=== PATIENT | female | born 1940 | race Caucasian/White ===

== ENCOUNTER 2017-05-01 13:22 | Outpatient (CLI) | payer MEDICARE ==
--- NOTE | 2017-05-01 14:48 | CT ---
CT LUMBAR SPINE WITHOUT CONTRAST: HISTORY: Left hip pain, extending down the left leg. History of lumbar fusion at L4-L5 in 2008. COMPARISON: None. TECHNIQUE: CT lumbar spine is performed without intravenous Gadolinium administration. Multisequential, multipl earle imaging is performed. FINDINGS: There are bilateral transpedicular screws at L4 and L5. There is bone graft material involving the p osterior elements. There is a partial right facetectomy at L4. Disk prosthesis at L4-L5 level is no sage. There is 5 mm of anterolisthesis of L4 upon L5. There is 4 mm of anterolisthesis of L5 upon S1 . Vacuum-disk phenomenon at L5-S1 and L2-L3. Visualized lung trent are clear. Scarring in the right lung base is noted. Visualized retroperitoneal structures are unremarkable. Symmetric attenuation of the psoas muscles. Diverticulosis, without evidence of diverticulitis. No evidence of obstructive uropathy. 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 Lumbar spine vertebral body height is maintained. No fracture. Limited evaluation of the contents of the central spinal canal and neural foramina due to technique. T12-L1: No high-grade central canal stenosis or high-grade neural foraminal narrowing. L1-L2: No high-grade central canal stenosis or high-grade foraminal narrowing. L2-L3: Generalized disk bulge results in mild central canal stenosis. Moderate right and moderate t o severe left foraminal narrowing. L3-L4: Generalized disk bulge, ligamentum flavum thickening, and facet hypertrophy result in mild ce ntral canal stenosis. Mild bilateral foraminal narrowing. L4-L5: Disk prosthesis. Postsurgical changes are present. Limited evaluation due to beam attenuati on artifact. No high-grade central canal stenosis. Right neural foramen is patent. Mild left nasrin inal narrowing. L5-S1: Vacuum disk phenomenon. No high-grade central canal stenosis. Moderate right and mild left foraminal narrowing. IMPRESSION: Postoperative and degenerative change of the lumbar spine as above. POS: [facility]
== END 2017-05-01 13:23 | disposition home or self-care (01) ==
LOC: TBSIIMAG 13:22
PROVIDERS: ATTEND Orthopaedic Surgery
DX: M54.30 Sciatica, unspecified side (principal); M47.896 Other spondylosis, lumbar region; Z98.1 Arthrodesis status
CPT/HCPCS: 72131

== ENCOUNTER 2017-06-17 10:20 | Outpatient (CLI) | payer MEDICARE | END 2017-06-17 10:21 | disposition home or self-care (01) | LOC: BICMAMMO 10:20 | PROVIDERS: ATTEND Internal Medicine Rheumatology | DX: M81.0 Age-related osteoporosis without current pathological fracture (principal); M85.80 Other specified disorders of bone density and structure, unspecified site | CPT/HCPCS: 77080 ==

== ENCOUNTER 2017-07-14 10:04 | Outpatient (CLI) | payer MEDICARE ==
--- NOTE | 2017-07-14 12:21 | RAD ---
THREE VIEWS LUMBAR SPINE INCLUDING FLEXION AND EXTENSION VIEWS: Date: 07-14-17 History: Spondylolisthesis. Comparison: CT lumbar spine 05-01-17. FINDINGS: There are post-surgical changes related to posterior fusion at the L4-5 level with bipedicular screws and posterior rods again transfixing this level. No obvious hardware complication is appreciated. In tradiscal prosthesis is present at this level. There is slight retrolisthesis of L2 on L3 which is a stable finding from the prior exam. There is al so slight grade I anterolisthesis of L5 on S1 which is also stable from prior CT exam. There is narro wing of the L2-3 and L5-S1 intervertebral disc spaces. No abnormal translational motion is seen betwe en the flexion and extension views of the lumbar spine. Degenerative change is seen in the lower thor acic spine. Vascular calcifications are noted in the abdominal aorta. IMPRESSION: 1. Post-surgical changes related to posterior fusion at the L4-5 level. No hardware complication is s een. 2. Degenerative changes at the L2-3 and L5-S1 levels with slight retrolisthesis of L2 on L3 and stabl e grade I anterolisthesis of L5 on S1. POS: [facility]
== END 2017-07-14 10:05 | disposition home or self-care (01) ==
LOC: RAD 10:04
PROVIDERS: ATTEND Specialist
DX: M43.17 Spondylolisthesis, lumbosacral region (principal); M47.896 Other spondylosis, lumbar region; M47.897 Other spondylosis, lumbosacral region; Z98.1 Arthrodesis status
CPT/HCPCS: 72100

== ENCOUNTER 2017-10-03 13:07 | Observation (INO) | payer MEDICARE ==
[2017-10-03] MEDS ORDERED: Nitroglycerin 0.4 MG TAB (25 Tab Bottle) ONE (13:28)
[2017-10-03 14:31] LABS: #Lymphocytes 1.5 thou/uL (1.20-3.40); #Monocytes 0.5 thou/uL (0.11-0.59); #Neutrophils 4.1 thou/uL (1.40-6.50); %Basophils 0.5 % (0.0-1.0); %Eosinophils 0.5 % (0.0-10.0); %Lymphocytes 24.3 % (21.0-51.0); %Monocytes 7.3 % (0.0-10.0); %Neutrophils 67.4 % (42.0-75.0); Hemoglobin 12.9 g/dL (12.0-16.0); Mean Corpuscular HGB CONC 34.9 g/dL (32.0-36.0); Mean Corpuscular Hemoglobin 33.8 pg (27.0-31.0); Mean Corpuscular Volume 96.7 fL (78.0-98.0); Mean Platelet Volume 6.9 fL (7.4-10.4); Platelet Count 243 thou/uL (130-400); RBC Distribution Width 13.1 % (11.5-14.5); Red Blood Cell (RBC) Count 3.81 mill/uL (4.20-5.40); White Blood Cell (WBC) Count 6.1 thou/uL (4.8-10.8)
[2017-10-03 14:53] LABS: ALT (SGPT) 18 U/L (8-55); AST (SGOT) 33 U/L (5-34); Albumin 4.2 g/dL (3.4-4.8); Alkaline Phosphatase 58 U/L (40-150); Anion Gap 18 mmol/L (10-20); BUN (Urea Nitrogen) 13 mg/dL (9.8-20.1); Bilirubin, Total 0.5 mg/dL (0.2-1.2); CK (CPK) 124 U/L (29-168); Calc. Creatinine Clearance 0 mL/min (70-130); Calcium 9.2 mg/dL (7.8-10.44); Carbon Dioxide 19 mmol/L (23-31); Chloride 101 mmol/L (98-107); Estimated GFR-MDRD 66; Globulin 3.2 g/dL (2.4-3.5); Glucose 74 mg/dL (83-110); Lipase 43 U/L (8-78); Potassium 3.9 mmol/L (3.5-5.1); Protein, Total 7.4 g/dL (6.0-8.3); Sodium 134 mmol/L (136-145)
[2017-10-03 14:58] LABS: CKMB 1.8 ng/mL (0-6.6); Troponin I 0.011 ng/mL (< 0.028)
[2017-10-03 17:51] LABS: Troponin I 0.013 ng/mL (< 0.028)
[2017-10-03] MEDS ORDERED: Sodium Chloride 0.9% 1,000 ML IV SCH (18:45)
[2017-10-03 19:02] VITALS: BMI 23.0
[2017-10-03 21:27] LABS: Troponin I Less than 0.010 ng/mL (< 0.028)
[2017-10-03] MEDS ORDERED: Ondansetron ODT 4 MG TAB PO PRN (22:13)
[2017-10-03] MEDS ORDERED: Acetaminophen 325 MG TAB PO PRN (22:13)
[2017-10-03] MEDS ORDERED: Ondansetron HCl/PF 4 MG/2 ML Vial IVP PRN (22:13)
[2017-10-03] MEDS ORDERED: Nitroglycerin 0.4 MG TAB (25 Tab Bottle) PO PRN (22:13)
[2017-10-03] MEDS ORDERED: Senokot 8.6 MG TAB PO PRN (22:13)
[2017-10-03] MEDS ORDERED: hydrALAZINE 20 MG/ML VIAL SLOW IVP PRN (22:16)
[2017-10-03] MEDS ORDERED: Famotidine 20 MG TAB PO SCH (22:30)
--- NOTE | 2017-10-03 22:46 | HP ---
DATE OF ADMISSION: 10/03/2017 PRIMARY CARE PHYSICIAN: Dr. Edge. PRIMARY BOX SPINNER: Dr. Garrido. CHIEF COMPLAINT: Chest discomfort. HISTORY OF PRESENT ILLNESS: The patient is a 77-year-old female with hypertension and rheumatoid art hritis, presented to the emergency room with chest discomfort that has been ongoing for last few week s. The patient was recently evaluated by Dr. Garrido as outpatient, who recommended a stress test and an echocardiogram, which was scheduled for next week. Patient had chest discomfort this morning, for which she presented to the emergency room. It was mod erate in intensity, substernal, associated with shortness of breath, nausea, and lightheadedness. Th e pain improved with nitroglycerin. She denies recent immobilization, travel, fever, chills, or coug h. Recently, the patient gets short of breath on [id number] exertion. She was recently starte d on Toprol-XL by Dr. Garrido. PAST MEDICAL HISTORY: 1. Hypertension. 2. Rheumatoid arthritis. 3. Osteoarthritis. 4. GERD. 5. Hypothyroidism. 6. Chronic pain syndrome. PAST SURGICAL HISTORY: 1. Multiple orthopedic surgeries including left knee replacement, right hip replacement, bunionectom y, rotator cuff surgery on the right. 2. Thyroidectomy. 3. Tonsillectomy. 4. Basal cell carcinoma removal. ALLERGIES: The patient is allergic to PENICILLIN, SULFA, BETADINE. CURRENT HOME MEDICATIONS: 1. Protonix. 2. Pepcid. 3. Metoprolol succinate 25 mg at bedtime. 4. Losartan 50 mg daily. 5. Levothyroxine 112 mcg daily. 6. Folic acid daily. 7. Methotrexate. SOCIAL HISTORY: Patient currently lives at home. No smoking, alcohol, or drug use. She is FULL COD E, makes her own decision with the help of her family. FAMILY HISTORY: Negative for premature coronary artery disease. REVIEW OF SYSTEMS: The following complete review of systems was negative, unless otherwise mentioned in the HPI or below: Constitutional: Weight loss or gain, ability to conduct usual activities. Sk in: Rash, itching. Eyes: Double vision, pain. ENT/Mouth: Nose bleeding, neck stiffness, pain, te nderness. Cardiovascular: Palpitations, dyspnea on exertion, orthopnea. Respiratory: Shortness of breath, wheezing, cough, hemoptysis, fever, or night sweats. Gastrointestinal: Poor appetite, abdo mellissa pain, heartburn, nausea, vomiting, constipation, or diarrhea. Genitourinary: Urgency, frequen cy, dysuria, nocturia. Musculoskeletal: Pain, swelling. Neurologic/Psychiatric: Anxiety, depressi on. Allergy/Immunologic: Skin rash, bleeding tendency. PHYSICAL EXAMINATION: VITAL SIGNS: Temperature 98.6, respirations of 19, pulse rate of 95, blood pressure 173/106, O2 satu ration 99% on room air. GENERAL: A 77-year-old female in no apparent distress. Chest discomfort has resolved. HEENT: Head: Atraumatic, normocephalic. Sclerae are anicteric. Moist mucous membrane, no oral les ion. NECK: Supple, no JVD appreciated. No carotid bruit. LUNGS: Clear to auscultation bilaterally. No wheezing, rales, or rhonchi. HEART: S1 and S2 present. Regular rate and rhythm, 2/6 systolic murmur over the mitral area. No he aves or pulsation. ABDOMEN: Soft, nontender, bowel sounds present, no rebound or guarding. EXTREMITIES: No edema or calf tenderness. NEUROLOGIC: Grossly nonfocal. Moves all 4 extremities. PSYCHIATRY: Alert, awake, oriented x3. SKIN: Warm and dry. LYMPH NODES: No palpable lymph nodes in the neck. PERIPHERAL VASCULAR: Radial pulses palpable bilaterally. MUSCULOSKELETAL: No joint swelling or tenderness. LABORATORY FINDINGS: CBC showed WBC 6.1 with hemoglobin 12.9. Chemistries showed sodium 134, potassium 3.9, chloride 101, bicarbonate 19, BUN 13, creatinine 0.83. LFTs in normal range. Troponin negative. EKG, by my review, showed sinus rhythm with left ventricu lar hypertrophy and nonspecific ST-T-wave changes. IMPRESSION AND PLAN: 1. Chest discomfort, rule out acute coronary syndrome. Patient's symptoms are somewhat suspicious f or angina. We will consult Cardiology. We will also get stress test in a.m. We will add aspirin. Continue beta blockers and losartan. 2. Rheumatoid arthritis. We will resume methotrexate. 3. Degenerative joint disease. 4. Gastroesophageal reflux disease. We will continue PPI and H2 blockers, which she takes at home. 5. Mild hyponatremia. Repeat labs after 1 week is recommended. Primary care physician advised to f jose elias. 6. Chronic kidney disease, stage 2. 7. Hypothyroidism. We will continue levothyroxine. 8. Chronic pain syndrome. Plan of care was discussed with the patient and the family in detail, and they stated understanding.
[2017-10-04] MEDS ORDERED: Levothyroxine Sodium 112 MCG TAB PO SCH (06:00)
[2017-10-04] MEDS ORDERED: Losartan 25 MG TAB PO SCH (09:00)
[2017-10-04] MEDS ORDERED: Hydroxychloroquine Sulfate 200 MG TAB PO SCH ×2 (09:00→21:00)
[2017-10-04] MEDS ORDERED: Aspirin 325 MG TAB PO SCH (09:00)
[2017-10-04] MEDS ORDERED: ADENOSINE 60 MG/20 ML VIAL ONE (11:06)
[2017-10-04 15:49] VITALS: BP 140/74; TEMP 98
--- NOTE | 2017-10-04 16:12 | DIS ---
DATE OF DISCHARGE: 10/04/2017 DISCHARGE DISPOSITION: Home. FOLLOWUP: 1. Follow up with primary care physician, Dr. Heather Edge in 1 week. 2. Follow up with Dr. Garrido in 2-3 weeks. ALLERGIES: The patient is allergic to PENICILLIN, IODINE and SULFA. DISCHARGE MEDICATIONS: Are same as admission medications. No changes were made. BRIEF HOSPITAL COURSE: The patient is a 77-year-old female with hypertension and rheumatoid arthriti s, presented to the emergency room with chest discomfort. Please refer to the history and physical d ated 10/03/2017 for further details. The patient was admitted to the hospital with a diagnosis of chest discomfort, rule out acute coronar y syndrome. Serial troponins remained negative. Patient was seen by Cardiology, Dr. Garrido. She underwent a stress test that was negative for reversible ischemia. Patient has been cleared by Card iology for discharge. Telemetry monitoring did not reveal significant arrhythmias. FINAL DIAGNOSES: 1. Chest discomfort, acute coronary syndrome ruled out. 2. Negative Cardiolite stress test. 3. Rheumatoid arthritis. 4. Degenerative joint disease. 5. Gastroesophageal reflux disease. 6. Mild hyponatremia. Repeat labs after 1 week recommended. Primary care physician advised to foll ow. 7. Chronic kidney disease stage 2. 8. Hypothyroidism. 9. Chronic pain syndrome. 10. Plan of care was discussed with the patient in detail. She stated understanding.
--- NOTE | 2017-10-04 16:40 | CON ---
DATE OF CONSULTATION: 10/04/2017 REASON FOR CONSULTATION: Shortness of breath and chest pain. HISTORY OF PRESENT ILLNESS: Ms. Henriquez is a very pleasant 77-year-old woman who was found and evalu ated in the office recently. Her main complaint was shortness of breath. Shortness of breath would be intermittent. She also had chest tightness and pressure. No other associated ameliorating or exa cerbating factors present. She was scheduled for a stress study next week. [facility]. PAST MEDICAL HISTORY: Hyperthyroidism. PAST SURGICAL HISTORY: Tonsillectomy, hysterectomy, bunion repair, right hip surgery, hand surgery, back surgery, rotator cuff repair, knee surgery. ALLERGIES: SULFA, PENICILLIN and IODINE. HOME MEDICATIONS: Include methotrexate, folic acid, hydroxychloroquine, Tylenol, clindamycin, Imodiu m, losartan, stool softener, Protonix, vitamin D3, Zetia, calcium, Toprol-XL. REVIEW OF SYSTEMS: Ten-point review of systems reviewed as above, otherwise negative. PHYSICAL EXAMINATION: GENERAL: Patient is a pleasant female who is in no acute distress. The patient appears her stated age. VITAL SIGNS: Blood pressure 147/63, pulse 92, temperature 98.6. NEUROLOGIC: The patient is alert and oriented times 3 with no focal neurologic deficits. HEENT: Sclerae without icterus. Mouth has moist mucous membranes with normal pallor. NECK: No JVD. Carotid upstroke brisk. No bruits bilaterally. LUNGS: Clear to auscultation with unlabored respirations. BACK: No scoliosis or kyphosis. CARDIAC: Regular rate and rhythm with normal S1 and S2. No S3 or S4 noted. No significant rubs, murmurs, thrills, or gallops noted throughout the precordium. PMI is not displaced. There is no parasternal heave. ABDOMEN: Soft, nontender, nondistended. No peritoneal signs present. No hepatosplenomegaly. No abnormal striae. EXTREMITIES: 2+ femoral and 2+ dorsalis pedis pulses. No cyanosis, clubbing, or edema. SKIN: No gross abnormalities. PERTINENT LABORATORY DATA: Hemoglobin 12.9, creatinine 0.83, BNP of 134, troponin negative. IMAGING DATA: Stress rest negative for ischemia with normal LVEF. IMPRESSION: 1. Chest pain. 2. Shortness of breath. RECOMMENDATIONS: Ms. Henriquez's symptoms are not felt to be typical for angina. Her heart score is e stimated at less than 3. She underwent a noninvasive stress study that is negative for ischemia. I would seek a noncardiac cause. I did state we could proceed with angiography for symptoms dictated. At this point, she would like to proceed with medical therapy. Her family was present during the di scussion. PLAN: Follow up Ms. Henriquez in next 1-2 weeks.
--- NOTE | 2017-10-04 16:48 | NM ---
MYOCARDIAL PERFUSION STUDY: Date: 10-04-17 History: Chest pain. Radiopharmaceutical: 28 mCi Technetium 99M Sestamibi, IV at stress. 9.4 mCi Technetium 99M Sestamibi, IV at rest. Medications: 11.2 ml (33.6 mg) Adenosine, IV. FINDINGS: There is normal uptake of radiotracer seen within the left ventricular myocardium on the stress and r esting acquisitions. There is no significant reversible defect identified. No significant area of rev ersibility is identified on quantitative analysis. The gated images show mild hypokinesis at the sept um. There is normal ventricular wall thickening. Calculated left ventricular ejection fraction is 51% which is at the lower limits of normal. IMPRESSION: 1. Normal myocardial perfusion study without evidence of a reversible defect seen to suggest ischemia . 2. Mild hypokinesis of the septum. 3. Normal LVEF of 51%. POS: [facility]
[2017-10-04] MEDS ORDERED: Ezetimibe 10 MG TAB PO SCH (21:00)
[2017-10-04] MEDS ORDERED: Latanoprost 0.005% Ophth Soln 2.5 ml Bottle EA EYE SCH (21:00)
[2017-10-04] MEDS ORDERED: Famotidine 20 MG TAB PO SCH (21:00)
== END 2017-10-04 16:20 | disposition home or self-care (01) ==
LOC: ERS 13:07 → 2SW 18:45
PROVIDERS: ADMIT Internal Medicine; ATTEND Internal Medicine
DX: R07.89 Other chest pain (principal); M06.9 Rheumatoid arthritis, unspecified; K21.9 Gastro-esophageal reflux disease without esophagitis; E87.1 Hypo-osmolality and hyponatremia; I12.9 Hypertensive chronic kidney disease with stage 1 through stage 4 chronic kidney disease, or unspecified chronic kidney disease; N18.2 Chronic kidney disease, stage 2 (mild); E03.9 Hypothyroidism, unspecified; G89.4 Chronic pain syndrome; M19.90 Unspecified osteoarthritis, unspecified site; Z88.0 Allergy status to penicillin; Z88.2 Allergy status to sulfonamides; Z88.8 Allergy status to other drugs, medicaments and biological substances
CPT/HCPCS: 71045; 78452; 80053; 82550; 82553; 83690; 83880; 84484 ×2; 85025; 93005; 93017; 94760; 96360; 99285; A9500; G0378; 36415; J0153

== ENCOUNTER 2017-10-30 09:21 | Outpatient (CLI) | payer MEDICARE | END 2017-10-30 09:22 | disposition home or self-care (01) | LOC: BICMRI 09:21 | PROVIDERS: ATTEND Specialist | DX: M54.14 Radiculopathy, thoracic region (principal) | CPT/HCPCS: 72146 ==

== ENCOUNTER → 2018-09-03 | Day surgery (SDC) | payer MEDICARE ==
[~2018-09-03] MED LIST: Lidocaine 2% Jelly 5 ML TUBE ONE
== END ==
LOC: ENDO/OP 07:49
PROVIDERS: ATTEND Internal Medicine Gastroenterology
DX: R13.10 Dysphagia, unspecified (principal); M06.9 Rheumatoid arthritis, unspecified; Z79.899 Other long term (current) drug therapy; Z88.0 Allergy status to penicillin; Z88.2 Allergy status to sulfonamides; Z88.8 Allergy status to other drugs, medicaments and biological substances; Z91.040 Latex allergy status
CPT/HCPCS: 91010

== ENCOUNTER 2018-11-09 10:09 | Outpatient (CLI) | payer MEDICARE ==
--- NOTE | 2018-11-09 13:13 | RAD ---
ESOPHAGRAM: HISTORY: Pill dysphagia. FINDINGS: Swallowing is grossly normal. There is unobstructed flow of contrast through the esophagus into the stomach. No ulcer, stricture, mass, or diverticulum is seen. A 12 mm tablet passed promptly from th e esophagus into the stomach. After the passage of the tablet, the patient complained of a feeling of sticking of the tablet in the upper mid chest likely due to esophageal spasm. IMPRESSION: No evidence of obstructive mass or stricture. POS: [facility]
== END 2018-11-09 10:10 | disposition home or self-care (01) ==
LOC: RAD 10:09
PROVIDERS: ATTEND Internal Medicine Gastroenterology
DX: R13.10 Dysphagia, unspecified (principal)
CPT/HCPCS: 74220

== ENCOUNTER 2019-03-15 13:43 | Outpatient (CLI) | payer MEDICARE ==
--- NOTE | 2019-03-15 15:12 | MRI ---
Lumbar spine MRI with and without contrast: 03/15/2019 COMPARISON: 02/08/2016 HISTORY: Postlaminectomy syndrome, low back pain radiating down the left leg TECHNIQUE: Multiplanar multisequence MR imaging of the lumbar spine obtained with and without contras t FINDINGS: The sagittal STIR imaging demonstrates no focal area of osseous marrow edema. On the basis of 5 lumbar type vertebral bodies, the conus medullaris terminates at the L1-2 level. There is retrolisthesis at L2-3 measuring 5 mm and there is anterolisthesis at L4-5 measuring 6 mm an d at L5-S1 measuring 9-10 mm. Posterior fusion hardware noted at L4-5 with bilateral pedicle screws and vertically oriented interlocking rods. T12-L1: Mild bilateral facet hypertrophy with no significant central canal or neural foraminal stenos is. L1-2: Mild bilateral facet hypertrophy. Mild disc space narrowing and disc desiccation with mild disc bulge. No significant central canal or neural foraminal stenosis. L2-3: There is no central canal stenosis. There is mild bilateral facet hypertrophy. There is a nasrin inal and post foraminal disc protrusion on the left. This left-sided disc protrusion in combination with left-sided facet hypertrophy causes severe left-sided neural foraminal stenosis. There is mild/m oderate right neural foraminal stenosis. This neural foraminal stenosis has worsened bilaterally with compared to the prior examination. L4-5: There is disc space narrowing and disc desiccation with mild disc bulge. Bilateral facet hypert rophy is noted. No significant central canal stenosis. Mild left neural foraminal stenosis. No significant right neural foraminal stenosis. L4-5: Disc space narrowing and disc desiccation with vacuum disc formation. No central canal stenosis . Facet hypertrophy noted bilaterally with mild bilateral neural foraminal stenosis. L5-S1: There is disc space narrowing and disc desiccation. There is is no significant central canal s tenosis. There is mild bilateral neural foraminal stenosis, right greater than left. The imaged retroperitoneal structures demonstrate no acute findings. The postcontrast imaging demonstrates no abnormal enhancement involving the contents of the thecal sa c, the imaged osseous structures, or the intervertebral discs IMPRESSION: Postoperative and degenerative changes within the lumbar spine as detailed above. The mos t significant finding is severe left-sided neural foraminal stenosis at L2-3 on the basis of disc protrusion and facet hypertrophy.
== END 2019-03-15 13:44 | disposition home or self-care (01) ==
LOC: BICMRI 13:43
PROVIDERS: ATTEND Specialist
DX: M51.16 Intervertebral disc disorders with radiculopathy, lumbar region (principal); M96.1 Postlaminectomy syndrome, not elsewhere classified; M47.26 Other spondylosis with radiculopathy, lumbar region; M48.061 Spinal stenosis, lumbar region without neurogenic claudication; Z98.890 Other specified postprocedural states
CPT/HCPCS: 72158; 82565

== ENCOUNTER 2019-05-10 09:45 | Outpatient (CLI) | payer MEDICARE, OTHER ==
--- NOTE | 2019-05-10 10:37 | BD ---
BONE DENSITOMETRY USING DEXA: Date: 05/10/2019 HISTORY: Postmenopausal screening for osteoporosis. FINDINGS: Left Forearm: BMD (g/cm2) UD 0.366 T-Score: -1.3 Z-Score: 0.9 Mid 0.484 T-Score: -2.2 Z-Score: 0.8 1/3 0.592 T-Score: -1.7 Z-Score: 1.4 Total 0.475 T-Score: -1.9 Z-Score: 1.1 Left Hip: Neck 0.620 T-Score: -2.1 Z-Score: 0.2 Total 0.754 T-Score: -1.5 Z-Score: 0.5 IMPRESSION: Osteopenia. POS: [facility]
== END 2019-05-10 09:46 | disposition home or self-care (01) ==
LOC: BICMAMMO 09:45
PROVIDERS: ATTEND Neurological Surgery
DX: M81.0 Age-related osteoporosis without current pathological fracture (principal); M85.89 Other specified disorders of bone density and structure, multiple sites
CPT/HCPCS: 77080

== ENCOUNTER 2020-02-29 08:16 | Outpatient (CLI) | payer MEDICARE ==
[2020-03-01 02:42] LABS: SARS-CoV-2 MS2 Positive; SARS-CoV-2 N Gene Negative; SARS-CoV-2 S Gene Negative; SARS-CoV-2 by NAA Not Detected (NotDetected); SARS-CoV-2 orf1ab Negative
== END 2020-02-29 08:17 | disposition home or self-care (01) ==
LOC: LABBT 08:16
PROVIDERS: ATTEND Specialist
DX: Z01.812 Encounter for preprocedural laboratory examination (principal); Z20.828 Contact with and (suspected) exposure to other viral communicable diseases
CPT/HCPCS: 87635; U0003

== ENCOUNTER 2020-03-06 10:49 | Day surgery (SDC) | payer MEDICARE ==
[2020-03-05 10:01] VITALS: BMI 20.5
[~2020-03-06 10:49] MED LIST changes: +Dexamethasone 20 MG/5 ML VIAL ONE; +Lidocaine 1% PF 5 ML VIAL ONE; -Lidocaine 2% Jelly 5 ML TUBE ONE; +Ondansetron PF 4 MG/2 ML Vial ONE; +PROPOFOL 200 MG/20 ML VIAL ONE
[2020-03-06] MEDS ORDERED: Fentanyl 100 MCG/2 ML VIAL ONE (11:23)
[2020-03-06] MEDS ORDERED: Propofol 500 MG/50 ML VIAL ONE (11:28)
[2020-03-06] MEDS ORDERED: Bupivacaine PF 0.5% 30 ML VIAL ONE (11:59)
[2020-03-06] MEDS ORDERED: EPINEPHrine 1 MG/ML AMP ONE (11:59)
[2020-03-06] MEDS ORDERED: Vancomycin 1 GM/200 ML BAG ONE (12:09)
--- NOTE | 2020-03-06 13:55 | RAD ---
XR Thoracic Spine 1 View History: Dorsal column stimulator insertion Comparison: None. Findings: Single image was obtained with dorsal column electrodes present at the mid thoracic spine. Impression: Fluoroscopy for procedure purposes.
--- NOTE | 2020-03-06 16:57 | OP ---
DATE OF PROCEDURE: 03/06/2020 PREOPERATIVE DIAGNOSES: 1. Postlaminectomy syndrome. 2. Chronic pain syndrome. 3. Lumbar radiculopathy. POSTOPERATIVE DIAGNOSES: 1. Postlaminectomy syndrome. 2. Chronic pain syndrome. 3. Lumbar radiculopathy. PROCEDURES PERFORMED: 1. Spinal cord stimulator generator implant. 2. Spinal cord stimulator lead implant x2. DESCRIPTION OF PROCEDURE: The patient was taken to the operating room and placed prone on the operating room table. A time-out was performed. The back was prepped with ChloraPrep. Sterile drapes were applied. Using fluoroscopy, we located the interspace of T12-L1. We anesthetized the skin and made an incision and blunt dissected this down to fascia. We used the 14-gauge supplied Touhy needle in a paramedian fashion to engage in the ligament. We used loss of resistance to achieve access to the epidural space. This was negative for aspiration of heme or CSF. An 8 contact Medtronic lead was then threaded through the needle and up the midline dorsal epidural space to the bottom of T7. We then placed a contralateral lead using the exact same technique to place the lead just right of midline at the bottom of T8. Stimulation was performed with the patient awake and the patient noted paresthesia in all pain areas. We then took the needles out taking care not to remove the leads or move the leads. We threaded anchors over these leads and brought that down to the fascia layer. We fixated the anchors to the fascia using 2-0 silk suture x2 for each anchor. We tugged the leads under continuous fluoro and they did not move in the epidural space. A tension relief loop was then created in that incision. We then anesthetized the left upper buttock and made a horizontal incision. Blunt dissected this down to Sandepe fascia and blunt dissected superior and inferiorly to make a pocket. We used a tunneling device to connect two incisions. The leads were threaded through this tunneling device and brought to the battery pocket area. These were connected to the battery and fixated to the battery using a torque wrench. Impedances were checked which were all good. We put the battery in the pocket, which went in easily. We approximated the fascial areas using 2-0 Vicryl sutures in a horizontal mattress and simple interrupted stitch in multiple layers. We then used a 3-0 repeat for subcuticular stitch and used Dermabond over this. Once dry, we placed a sterile 4x4s and Medipore tape over this and the patient was taken to Day Stay under stable condition. Job ID: [id number]
== END 2020-03-06 15:15 | disposition home or self-care (01) ==
LOC: CCL 10:49
PROVIDERS: ATTEND Specialist
PROC: 0JH70BZ Insertion of Single Array Stimulator Generator into Back Subcutaneous Tissue and Fascia, Open Approach (ICD-10-PCS; principal; 2020-03-06)
PROC: 00HU0MZ Insertion of Neurostimulator Lead into Spinal Canal, Open Approach (ICD-10-PCS; 2020-03-06)
DX: M96.1 Postlaminectomy syndrome, not elsewhere classified (principal); G89.4 Chronic pain syndrome; M43.17 Spondylolisthesis, lumbosacral region; M51.16 Intervertebral disc disorders with radiculopathy, lumbar region; M51.17 Intervertebral disc disorders with radiculopathy, lumbosacral region; M47.22 Other spondylosis with radiculopathy, cervical region; M46.1 Sacroiliitis, not elsewhere classified; Z79.899 Other long term (current) drug therapy; Z88.0 Allergy status to penicillin; Z88.8 Allergy status to other drugs, medicaments and biological substances; Z88.2 Allergy status to sulfonamides
CPT/HCPCS: 72020; 76000; C1778; C1787; J0171; J0690; J1100; J2405; J2704; J3010; J3370; L8679; L8689; S0020

== ENCOUNTER 2021-11-19 13:15 | Outpatient (CLI) | payer MEDICARE | END 2021-11-19 13:16 | disposition home or self-care (01) | LOC: BICMAMMO 13:15 | PROVIDERS: ATTEND Internal Medicine Rheumatology | DX: M81.8 Other osteoporosis without current pathological fracture (principal); M85.89 Other specified disorders of bone density and structure, multiple sites | CPT/HCPCS: 77080 ==

== ENCOUNTER 2021-12-02 11:17 | Outpatient (CLI) | payer MEDICARE | END 2021-12-02 11:18 | disposition home or self-care (01) | LOC: BICRAD 11:17 | PROVIDERS: ATTEND Nurse Practitioner Family | DX: M47.814 Spondylosis without myelopathy or radiculopathy, thoracic region (principal); Z98.890 Other specified postprocedural states | CPT/HCPCS: 72072 ==

== ENCOUNTER 2022-02-04 12:36 | Outpatient (CLI) | payer MEDICARE | END 2022-02-04 12:37 | disposition home or self-care (01) | LOC: RAD 12:36 | PROVIDERS: ATTEND Physician Assistant | DX: R06.02 Shortness of breath (principal); R91.8 Other nonspecific abnormal finding of lung field | CPT/HCPCS: 71046 ==

== ENCOUNTER 2022-04-02 11:05 | Outpatient (CLI) | payer MEDICARE | END 2022-04-02 11:06 | disposition home or self-care (01) | LOC: BICCT 11:05 | PROVIDERS: ATTEND Physician Assistant | DX: R91.8 Other nonspecific abnormal finding of lung field (principal); I70.90 Unspecified atherosclerosis; J98.4 Other disorders of lung | CPT/HCPCS: 71250 ==

== ENCOUNTER 2023-02-10 10:22 | Outpatient (CLI) | payer MEDICARE | END 2023-02-10 10:23 | disposition home or self-care (01) | LOC: MRI 10:22 | PROVIDERS: ATTEND Specialist | DX: M51.16 Intervertebral disc disorders with radiculopathy, lumbar region (principal); M47.26 Other spondylosis with radiculopathy, lumbar region; Z98.1 Arthrodesis status | CPT/HCPCS: 72148 ==

== ENCOUNTER 2023-08-26 12:58 | Outpatient (CLI) | payer MEDICARE | END 2023-08-26 12:59 | disposition home or self-care (01) | LOC: MRI 12:58 | PROVIDERS: ATTEND Nurse Practitioner Family | DX: M47.22 Other spondylosis with radiculopathy, cervical region (principal); M43.12 Spondylolisthesis, cervical region; M48.02 Spinal stenosis, cervical region; M25.78 Osteophyte, vertebrae; M50.121 Cervical disc disorder at C4-C5 level with radiculopathy; M48.03 Spinal stenosis, cervicothoracic region | CPT/HCPCS: 72141 ==

== ENCOUNTER 2023-10-28 12:56 | Inpatient (IN) | payer MEDICARE ==
[2023-10-28 13:49] LABS: #Basophils 0.04 10x3/uL (0.0-0.2); #Eosinphils Less than 0.03 10x3/uL (0.0-0.7); %Basophils 0.5 % (0.0-1.0); %Eosinophils 0.3 % (0.0-10.0); %Lymphocytes 19.4 % (21.0-51.0); %Monocytes 7.1 % (0.0-10.0); %Neutrophils 72.4 % (42.0-75.0); Hematocrit 41.5 % (36.0-47.0); Hemoglobin 14.5 g/dL (12.0-16.0); Mean Corpuscular HGB CONC 34.9 g/dL (32.0-36.0); Mean Corpuscular Hemoglobin 32.1 pg (27.0-31.0); Mean Corpuscular Volume 91.8 fL (78.0-98.0); Platelet Count 296 10x3/uL (130-400); RBC Distribution Width 13.8 % (11.5-14.5); Red Blood Cell (RBC) Count 4.52 mill/uL (4.20-5.40)
[2023-10-28 14:18] LABS: ALT (SGPT) 15 U/L (8-55); AST (SGOT) 45 U/L (5-34); Albumin 4.1 g/dL (3.4-4.8); Alkaline Phosphatase 62 U/L (40-110); Anion Gap 16 mmol/L (10-20); BUN (Urea Nitrogen) 18 mg/dL (9.8-20.1); Bilirubin, Total 0.6 mg/dL (0.2-1.2); Calc. Creatinine Clearance 0 mL/min (70-130); Calcium 10.3 mg/dL (7.8-10.44); Carbon Dioxide 25 mmol/L (23-31); Chloride 99 mmol/L (98-107); Estimated GFR 68; Globulin 4.1 g/dL (2.4-3.5); Glucose 96 mg/dL (83-110); Lipase 40 U/L (8-78); Potassium 4.7 mmol/L (3.5-5.1); Protein, Total 8.2 g/dL (5.8-8.1); Sodium 135 mmol/L (136-145)
[2023-10-28 14:19] LABS: Troponin I 0.017 ng/mL (< 0.028)
[2023-10-28] MEDS ORDERED: Acetaminophen 325 MG TAB PO PRN (16:20)
[2023-10-28] MEDS ORDERED: Acetaminophen/Codeine 30-300mg Tablet PO PRN (16:20)
[2023-10-28] MEDS ORDERED: Senokot S 8.6-50 MG TAB PO PRN (16:20)
[2023-10-28] MEDS ORDERED: Guaifenesin DM 100-10/5 ML UDCUP PO PRN (16:20)
[2023-10-28 17:25] LABS: Troponin I 0.015 ng/mL (< 0.028)
[2023-10-28] MEDS: Sodium Chloride 0.9% 1,000 ML IV SCH (17:58)
[2023-10-28 18:28] LABS: Bacteria/HPF None Seen HPF (None Seen); Bilirubin Negative (Negative); Blood, Urine Negative (Negative); Clarity Clear (Clear); Glucose, Urine (Dipstick) >=1000 mg/dL (Negative); Ketone, Urine Negative (Negative); Leukocyte Negative Leu/uL (Negative); Nitrite Negative (Negative); Protein, Urine (Dipstick) Negative (Neg-Trace); RBC/HPF None Seen HPF (0-3); Specific Gravity, Urine 1.008 (1.002-1.036); Squamous Epithelial 0-3 HPF (0-3); Urobilinogen Normal mg/dL (Less than 2); WBC/HPF None Seen HPF (0-3); pH, Urine 7.5 (5.0-9.0)
[2023-10-28 20:42] LABS: Troponin I 0.034 ng/mL (< 0.028)
[2023-10-28] MEDS: Enoxaparin 40 MG (0.4 mL) SYRINGE SC SCH (21:13)
[2023-10-28] MEDS: Ezetimibe 10 MG TAB PO SCH (21:13)
[2023-10-28] MEDS: Famotidine 20 MG TAB PO SCH (21:13)
[2023-10-28] MEDS: Latanoprost 0.005% Ophth Soln 2.5 ml Bottle EA EYE SCH (21:14)
[2023-10-28 23:22] VITALS: BMI 20.3
[2023-10-29 04:39] LABS: #Basophils 0.04 10x3/uL (0.0-0.2); %Basophils 0.5 % (0.0-1.0); %Eosinophils 0.8 % (0.0-10.0); %Lymphocytes 20.5 % (21.0-51.0); %Monocytes 10.1 % (0.0-10.0); %Neutrophils 67.7 % (42.0-75.0); Hematocrit 36.5 % (36.0-47.0); Hemoglobin 12.5 g/dL (12.0-16.0); Mean Corpuscular HGB CONC 34.2 g/dL (32.0-36.0); Mean Corpuscular Volume 93.4 fL (78.0-98.0); Mean Platelet Volume 10.1 fL (7.4-10.4); Platelet Count 243 10x3/uL (130-400); RBC Distribution Width 14.1 % (11.5-14.5); Red Blood Cell (RBC) Count 3.91 mill/uL (4.20-5.40)
[2023-10-29 04:56] LABS: ALT (SGPT) 11 U/L (8-55); AST (SGOT) 28 U/L (5-34); Albumin 3.3 g/dL (3.4-4.8); Alkaline Phosphatase 52 U/L (40-110); Anion Gap 15 mmol/L (10-20); BUN (Urea Nitrogen) 15 mg/dL (9.8-20.1); Bilirubin, Total 0.8 mg/dL (0.2-1.2); Calc. Creatinine Clearance 44 mL/min (70-130); Calcium 8.9 mg/dL (7.8-10.44); Carbon Dioxide 22 mmol/L (23-31); Chloride 104 mmol/L (98-107); Estimated GFR 73; Globulin 3.1 g/dL (2.4-3.5); Glucose 90 mg/dL (83-110); Magnesium 1.6 mg/dL (1.6-2.6); Potassium 3.7 mmol/L (3.5-5.1); Protein, Total 6.4 g/dL (5.8-8.1); Sodium 137 mmol/L (136-145)
[2023-10-29] MEDS: Levothyroxine Sodium 75 MCG TAB PO SCH (06:07)
[2023-10-29 09:01] LABS: Troponin I 0.041 ng/mL (< 0.028)
[2023-10-29] MEDS: Montelukast Sodium 10 mg Tablet PO SCH (10:31)
[2023-10-29] MEDS: Pantoprazole DR 40 MG TAB PO SCH (10:32)
[2023-10-29] MEDS: Lorazepam 2 MG/ML VIAL SLOW IVP SCH (15:06)
[2023-10-30 05:09] LABS: #Basophils 0.05 10x3/uL (0.0-0.2); %Basophils 0.8 % (0.0-1.0); %Eosinophils 1.4 % (0.0-10.0); %Lymphocytes 28.1 % (21.0-51.0); %Neutrophils 59.4 % (42.0-75.0); Hemoglobin 12.2 g/dL (12.0-16.0); Mean Corpuscular HGB CONC 33.9 g/dL (32.0-36.0); Mean Corpuscular Hemoglobin 32.1 pg (27.0-31.0); Mean Corpuscular Volume 94.7 fL (78.0-98.0); Mean Platelet Volume 9.9 fL (7.4-10.4); Platelet Count 239 10x3/uL (130-400); RBC Distribution Width 14.3 % (11.5-14.5)
[2023-10-30 05:28] LABS: ALT (SGPT) 13 U/L (8-55); AST (SGOT) 32 U/L (5-34); Albumin 3.3 g/dL (3.4-4.8); Alkaline Phosphatase 50 U/L (40-110); Anion Gap 15 mmol/L (10-20); BUN (Urea Nitrogen) 19 mg/dL (9.8-20.1); Bilirubin, Total 0.4 mg/dL (0.2-1.2); Calc. Creatinine Clearance 40 mL/min (70-130); Calcium 8.8 mg/dL (7.8-10.44); Carbon Dioxide 21 mmol/L (23-31); Chloride 107 mmol/L (98-107); Estimated GFR 65; Globulin 3.1 g/dL (2.4-3.5); Glucose 83 mg/dL (83-110); Magnesium 1.9 mg/dL (1.6-2.6); Potassium 4.1 mmol/L (3.5-5.1); Protein, Total 6.4 g/dL (5.8-8.1); Sodium 139 mmol/L (136-145)
[2023-10-31 04:54] LABS: #Basophils 0.04 10x3/uL (0.0-0.2); %Basophils 0.5 % (0.0-1.0); %Lymphocytes 28.1 % (21.0-51.0); %Monocytes 9.9 % (0.0-10.0); Hematocrit 36.6 % (36.0-47.0); Hemoglobin 12.4 g/dL (12.0-16.0); Mean Corpuscular HGB CONC 33.9 g/dL (32.0-36.0); Mean Corpuscular Hemoglobin 31.4 pg (27.0-31.0); Mean Corpuscular Volume 92.7 fL (78.0-98.0); Mean Platelet Volume 9.8 fL (7.4-10.4); Platelet Count 226 10x3/uL (130-400); RBC Distribution Width 14.2 % (11.5-14.5); Red Blood Cell (RBC) Count 3.95 mill/uL (4.20-5.40)
[2023-10-31 05:38] LABS: Anion Gap 14 mmol/L (10-20); BUN (Urea Nitrogen) 16 mg/dL (9.8-20.1); Calc. Creatinine Clearance 40 mL/min (70-130); Calcium 8.5 mg/dL (7.8-10.44); Carbon Dioxide 23 mmol/L (23-31); Chloride 107 mmol/L (98-107); Estimated GFR 66; Glucose 87 mg/dL (83-110); Magnesium 1.9 mg/dL (1.6-2.6); Potassium 3.9 mmol/L (3.5-5.1); Sodium 140 mmol/L (136-145)
[2023-10-31 08:06] VITALS: TEMP 98.1
[2023-10-31] MEDS: Sacubitril 24MG/Valsartan 26 MG TAB PO SCH (15:00)
[2023-10-31 15:06] VITALS: BP 145/75
[2023-11-03 19:10] LABS: Metanephrine,Plasma <25.0 pg/mL (0.0-88.0); Normetanephrine,Pl 67.1 pg/mL (0.0-297.2)
[2023-11-06 13:16] LABS: Metanephrine,Ur 40 ug/L (Undefined); Metanephrines Total-24H 53 ug/24 hr (36-209); Normetanephrine,Ur 179 ug/L (Undefined); Normetanephrines-24H U 237 ug/24 hr (131-612)
== END 2023-10-31 15:50 | disposition home or self-care (01) | DRG 312 ==
LOC: ERS 12:56 → ERHOLD 15:54 → 2NO 19:32 → OBSVTOIN 10-30 17:17
PROVIDERS: ADMIT Internal Medicine; ATTEND Internal Medicine
PROC: 4A00X4Z Measurement of Central Nervous Electrical Activity, External Approach (ICD-10-PCS; principal; 2023-10-29)
DX: R55 Syncope and collapse (principal); I50.22 Chronic systolic (congestive) heart failure; I42.8 Other cardiomyopathies; E78.5 Hyperlipidemia, unspecified; G89.4 Chronic pain syndrome; E03.9 Hypothyroidism, unspecified; K21.9 Gastro-esophageal reflux disease without esophagitis; M06.9 Rheumatoid arthritis, unspecified; M19.90 Unspecified osteoarthritis, unspecified site; I49.3 Ventricular premature depolarization; I11.0 Hypertensive heart disease with heart failure; Z88.0 Allergy status to penicillin; Z88.2 Allergy status to sulfonamides; Z79.899 Other long term (current) drug therapy; Z96.641 Presence of right artificial hip joint; Z96.652 Presence of left artificial knee joint; Z90.89 Acquired absence of other organs; Z98.890 Other specified postprocedural states; Z98.49 Cataract extraction status, unspecified eye
CPT/HCPCS: 36415; 70450; 70551; 71045; 80048; 80053; 81001; 83690; 83735; 83835; 83880; 84443; 84484; 85025; 93005; 93306; 93880; 95700; 95711; 95819; 96360; 96372; 96374; G0378; J1650; J2060; J7030

== ENCOUNTER 2024-11-01 10:59 | Outpatient (CLI) | payer MEDICARE | END 2024-11-01 11:00 | disposition home or self-care (01) | LOC: LABBT 10:59 | PROVIDERS: ATTEND Orthopaedic Surgery | DX: Z01.810 Encounter for preprocedural cardiovascular examination (principal); M54.50 Low back pain, unspecified; M54.17 Radiculopathy, lumbosacral region | CPT/HCPCS: 93005; 93010 ==

== ENCOUNTER 2024-11-01 11:00 | Inpatient (IN) | payer MEDICARE ==
[2024-11-01 13:43] LABS: #Basophils 0.03 10x3/uL (0.0-0.2); #Eosinophils 0.03 10x3/uL (0.0-0.7); #Monocytes 0.52 10x3/uL (0.11-0.59); #Neutrophils 4.04 10x3/uL (1.40-6.50); %Basophils 0.5 % (0.0-1.0); %Eosinophils 0.5 % (0.0-10.0); %Lymphocytes 24.8 % (21.0-51.0); %Monocytes 8.4 % (0.0-10.0); %Neutrophils 65.6 % (42.0-75.0); Hematocrit 39.2 % (36.0-47.0); Hemoglobin 12.9 g/dL (12.0-16.0); Mean Corpuscular Hemoglobin 31.1 pg (27.0-31.0); Mean Corpuscular Volume 94.5 fL (78.0-98.0); Platelet Count 275 10x3/uL (130-400); Red Blood Cell (RBC) Count 4.15 mill/uL (4.20-5.40); White Blood Cell (WBC) Count 6.16 10x3/uL (4.8-10.8)
[2024-11-01 14:02] LABS: INR-International Normal Ratio 1.1; PTT 35.9 sec (22.9-36.1); Prothrombin Time 14.3 sec (12.0-14.7)
[2024-11-01 14:19] LABS: Anion Gap 15 mmol/L (10-20); BUN (Urea Nitrogen) 14 mg/dL (9.8-20.1); Calc. Creatinine Clearance 0 mL/min (70-130); Calcium 9.4 mg/dL (7.8-10.44); Carbon Dioxide 27 mmol/L (23-31); Chloride 99 mmol/L (98-107); Glucose 83 mg/dL (83-110); Potassium 3.9 mmol/L (3.5-5.1); Sodium 137 mmol/L (136-145)
[2024-11-08] MEDS ORDERED: Glycopyrrolate 0.2 MG/ML 5 ML SYRINGE ONE (06:52)
[2024-11-08] MEDS ORDERED: fentaNYL PF 100 MCG/2 ML SYRINGE ONE ×3 (06:52→10:08)
[2024-11-08] MEDS ORDERED: Ondansetron PF 4 MG/2 ML Vial ONE (06:52)
[2024-11-08] MEDS ORDERED: PHENYLEPHRINE-NS 100 MCG/ML 10 ML SYRINGE ONE (06:52)
[2024-11-08] MEDS ORDERED: Lidocaine 1% PF 5 ML VIAL ONE (06:52)
[2024-11-08] MEDS ORDERED: PROPOFOL 20 ML ONE (06:52)
[2024-11-08] MEDS ORDERED: Rocuronium Bromide 10 MG/ML (10ML VIAL) ONE (06:52)
[2024-11-08] MEDS ORDERED: Lidocaine 2% 6 ML (Jelly) SYR ONE (06:56)
[2024-11-08] MEDS ORDERED: Famotidine/PF 20 mg/2ml Vial ONE (07:09)
[2024-11-08] MEDS ORDERED: Ketamine In 0.9 % NaCl 50 MG/5 ML SYRINGE ONE (07:34)
[2024-11-08] MEDS ORDERED: Etomidate 40 MG (20 mL) VIAL ONE (07:34)
[2024-11-08] MEDS ORDERED: SUGAMMADEX SODIUM 200 MG/2 ML VIAL ONE (08:15)
[2024-11-08] MEDS ORDERED: HYDROcodone/Acetaminophen 10/325 mg Tablet PO PRN (09:16)
[2024-11-08] MEDS ORDERED: Communication Order-Pharmacy FS SCH (09:30)
[2024-11-08] MEDS ORDERED: Senokot 8.6 MG TAB PO PRN (09:44)
[2024-11-08] MEDS ORDERED: HYDROmorphone 0.5 MG/0.5 ML SYRINGE ONE (10:53)
[2024-11-08] MEDS ORDERED: DENOSUMAB SC SCH (11:15)
[2024-11-08 12:32] VITALS: BMI 18.8
[2024-11-08] MEDS: Clindamycin/D5W 900 MG in Premix 1 BAG IVPB SCH (14:58)
[2024-11-08] MEDS: Cholecalciferol 1,000 UNITS (25 MCG) TAB PO SCH (15:00)
[2024-11-08] MEDS: Famotidine 20 MG TAB PO SCH (21:00)
[2024-11-08] MEDS: Ezetimibe 10 MG TAB PO SCH (21:00)
[2024-11-08] MEDS: Ondansetron PF 4 MG/2 ML Vial IVP PRN (21:00)
[2024-11-08] MEDS: Dapagliflozin Propanediol 10 MG TAB PO SCH (21:01)
[2024-11-08] MEDS: Sacubitril 24MG/Valsartan 26 MG TAB PO SCH (21:01)
[2024-11-08] MEDS: Aspirin 81 mg Enteric Coated Tablet PO SCH (21:01)
[2024-11-08] MEDS: Calcium Citrate 950 MG (200MG) TAB PO SCH (21:01)
[2024-11-08] MEDS: Acetaminophen 500 MG TAB PO PRN (21:02)
[2024-11-08] MEDS: Gabapentin 300 MG CAP PO SCH (21:03)
[2024-11-09] MEDS: Metoprolol Succinate XL 25 MG ER.TAB PO SCH (09:11)
[2024-11-09] MEDS: Pantoprazole 40 MG DR.TAB PO SCH (09:11)
[2024-11-09] MEDS: Cyanocobalamin (Vitamin B-12) 1,000 MCG TAB PO SCH (09:16)
[2024-11-09 10:14] LABS: Hematocrit 36.0 % (36.0-47.0); Hemoglobin 12.3 g/dL (12.0-16.0); Mean Corpuscular Hemoglobin 31.5 pg (27.0-31.0); Mean Corpuscular Volume 92.3 fL (78.0-98.0); Platelet Count 216 10x3/uL (130-400); Red Blood Cell (RBC) Count 3.90 mill/uL (4.20-5.40); White Blood Cell (WBC) Count 9.41 10x3/uL (4.8-10.8)
[2024-11-09 10:26] LABS: Anion Gap 15 mmol/L (10-20); BUN (Urea Nitrogen) 16 mg/dL (9.8-20.1); Calc. Creatinine Clearance 35 mL/min (70-130); Calcium 8.6 mg/dL (7.8-10.44); Carbon Dioxide 24 mmol/L (23-31); Chloride 99 mmol/L (98-107); Glucose 110 mg/dL (83-110); Potassium 3.9 mmol/L (3.5-5.1); Sodium 134 mmol/L (136-145)
[2024-11-09] MEDS: TETANUS, DIPHTHERIA TOX,ADULT (TDVAX) 0.5 ML VIAL IM ONE (11:54)
[2024-11-10 12:38] VITALS: BP 119/72; TEMP 97.2
== END 2024-11-10 15:48 | disposition home or self-care (01) | DRG 451 ==
LOC: SURG A 11-08 06:01
PROVIDERS: ADMIT Orthopaedic Surgery; ATTEND Orthopaedic Surgery
PROC: 0SG30A0 Fusion of Lumbosacral Joint with Interbody Fusion Device, Anterior Approach, Anterior Column, Open Approach (ICD-10-PCS; principal; 2024-11-09)
PROC: 0SB40ZZ Excision of Lumbosacral Disc, Open Approach (ICD-10-PCS; 2024-11-09)
DX: M48.062 Spinal stenosis, lumbar region with neurogenic claudication (principal); I42.8 Other cardiomyopathies; E87.1 Hypo-osmolality and hyponatremia; Z96.652 Presence of left artificial knee joint; E78.5 Hyperlipidemia, unspecified; I49.3 Ventricular premature depolarization; I50.9 Heart failure, unspecified; I11.0 Hypertensive heart disease with heart failure; I25.5 Ischemic cardiomyopathy; R13.10 Dysphagia, unspecified; G62.9 Polyneuropathy, unspecified; E89.0 Postprocedural hypothyroidism; K21.9 Gastro-esophageal reflux disease without esophagitis; G89.3 Neoplasm related pain (acute) (chronic); M54.2 Cervicalgia; Z96.641 Presence of right artificial hip joint; Z88.0 Allergy status to penicillin; Z88.2 Allergy status to sulfonamides; Z88.8 Allergy status to other drugs, medicaments and biological substances; Z98.890 Other specified postprocedural states; Z90.89 Acquired absence of other organs
CPT/HCPCS: 36415; 72100; 80048; 85025; 85027; 85610; 85730; 86850; 86900; 86901; A4314; C1713; C1889; J1100; J1171; J1308; J2405; J2704; J3010; J3490

== ENCOUNTER 2025-01-27 08:01 | Outpatient (CLI) | payer MEDICARE | END 2025-01-27 08:02 | disposition home or self-care (01) | LOC: BICRAD 08:01 | PROVIDERS: ATTEND Orthopaedic Surgery | DX: M54.50 Low back pain, unspecified (principal); M47.816 Spondylosis without myelopathy or radiculopathy, lumbar region; Z98.890 Other specified postprocedural states | CPT/HCPCS: 72100 ==

== ENCOUNTER 2025-02-07 11:47 | Outpatient (CLI) | payer MEDICARE | END 2025-02-07 11:48 | disposition home or self-care (01) | LOC: BICRAD 11:47 | PROVIDERS: ATTEND Orthopaedic Surgery | DX: M54.50 Low back pain, unspecified (principal); M47.816 Spondylosis without myelopathy or radiculopathy, lumbar region; Z98.890 Other specified postprocedural states | CPT/HCPCS: 72100 ==